=== PATIENT | male | born 1945 | race American Indian/Alaskan Native ===

== ENCOUNTER → 2019-12-28 11:38 | Outpatient (CLI) | payer MEDICARE, MEDICAID, SELFPAY ==
[2019-12-29 10:16] LABS: COVID19 Sendout NOT DETECTED (Not Detect)
== END ==
PROVIDERS: Visit Provider Physician Assistant
DX: Z01.812 Encounter for preprocedural laboratory examination (principal)
CPT/HCPCS: 87635

== ENCOUNTER 2019-12-31 09:01 | Inpatient (IN) | payer MEDICARE, MEDICAID, SELFPAY ==
[2019-12-31] VITALS (25 sets, daily range): BP systolic 96–159; BP diastolic 66–107; PULSE 82–122; RESP 9–27; TEMP 36.1–37.3; O2SAT 79–96; BMI 27.1
--- NOTE | 2019-12-31 | PATH_ITS ---
[facility] Accession Number: [id number] . 01 Material submitted: . PART A: bladder - LEFT LATERAL BLADDER WALL PART B: prostate - PROSTATE CHIPS . 02 Diagnosis: A. Left Lateral Bladder Wall, TURBT: Polypoid cystitis with cystitis cystica; please see comment. No evidence of neoplasm. . B. Prostate, TURP: Benign prostatic parenchyma with features of benign prostatic hyperplasia. Negative for malignancy. MRV 01/03/2020 1408 Local . 02 Comment: A. The histologic findings in the left lateral bladder wall are reactive in nature, and are seen commonly in patients with indwelling catheters. . As part of routine senior quality assurance specialist, Dr. Holguin has reviewed part A of this case and agrees with the diagnosis of polypoid cystitis. . 02 Electronically signed: . Lenny Yeung MD, PhD, Pathologist NPI- [id number] . 01 Gross description: . Specimen A is received in formalin, labeled with patient identification and left lateral bladder wall. It consists of two brown-oneal, irregular shaped, soft tissue pieces, measuring 0.3 x 0.3 x 0.2 cm each. The entire specimen is submitted in one cassette. . Summary of Sections: A1 - Two pieces. . Specimen B is received in formalin, labeled with patient identification and prostate chips. It consists of multiple pink-oneal prostatic chips, admixed with blood clot and black calculi, measuring 11.5 x 6.7 x 3.6 cm in aggregate and weighing 40.0 gram collectively. Eighty percent of the specimen is submitted in eight cassettes. . Summary of Sections: B1-B8 - Multiple pieces in each. ([id number]) /[facility] 01/01/2020 1630 Local . 02 Pathologist provided ICD-10: N40.1, N30.90 . 02 CPT . 555200, [id number] Performed at: 01 [facility] [address] [address], [place], [place] [id number] MD Enzo Painting MD Phone: [phone] Performed at: [facility] [id number] [place], [place] [id number] MD Kristel Hernandez MD Phone: [phone]
[2019-12-31] MEDS: LACTATED RINGERS 1,000 ML 42 ML IV ×2 (13:42→18:16)
--- NOTE | 2019-12-31 14:10 | PM.PREOP ---
Pre-operative Note Interval Note History & Physical reviewed/Exam performed by Physician: Yes Changes to H&P: No H&P completed within 30 days and has changed as indicated here:: There are no changes to the history and physical examinations scanned on file.
[2019-12-31 14:39] LABS: Hematocrit 44.7 % (41-53); Hemoglobin 15.2 g/dL (13.5-17.5); Mean Corpuscular HGB Conc 33.9 % (30-36); Mean Corpuscular Volume 91.5 fL (80-100); Platelet Count 244 X10^3/uL (150-400); Red Blood Cell Count 4.89 X10^6/uL (4.5-5.9); Red Cell Distribution Width 15.2 % (11.6-14.8); White Blood Cell Count 9.8 X10^3/uL (4.5-11.0)
[2019-12-31 14:56] LABS: Alanine Aminotransferase 23 IU/L (<50); Albumin 4.4 g/dL (3.5-5.0); Albumin Globulin Ratio 1.3 (1.0-2.8); Alkaline Phosphatase 163 U/L (38-126); Aspartate Aminotransferase 34 IU/L (17-59); BUN Creatinine Ratio 18.1 (6-22); Bilirubin Total 0.6 mg/dL (0.2-1.3); Blood Urea Nitrogen 19 mg/dL (9-20); Calcium 9.7 mg/dL (8.4-10.2); Carbon Dioxide 28 mmol/L (22-32); Chloride 105 mmol/L (98-107); Estimated Glomerular Filt Rate > 60.0 mL/min (>60); Globulin 3.4 g/dL (1.7-4.1); Glucose 96 mg/dL (80-110); HEMOLYSIS < 15 (0-50); Potassium 3.6 mmol/L (3.4-5.1); Sodium 141 mmol/L (137-145); Total Protein 7.8 g/dL (6.3-8.2)
[2019-12-31] MEDS: VANCOMYCIN 1,000 MG/200 ML PIGGYBACK 200 MG IV (15:25)
[2019-12-31] MEDS: GENTAMICIN 240 MG in SODIUM CHLORIDE 0.9% 100 ML 106 ML IV (15:53)
--- NOTE | 2019-12-31 16:29 | SUR.OPER ---
Lithotomy on padded OR bed, head on pillow, arms secured on padded arm boards at <90 degrees abduction. Legs secured in padded yellow fins stirrups.
[2019-12-31] MEDS: SODIUM CHLORIDE IRRIG SOLUTION 3,000 ML 18000 ML IRR ×2 (17:02→17:15)
[2019-12-31] MEDS: BELLADONNA/OPIUM SUPPOSITORIES 1 EACH PR (18:18)
--- NOTE | 2019-12-31 18:32 | PM.OP.1 ---
Operative Date/Time/Diagnoses Date of procedure: 12/31/19 Time of procedure: 18:32 Pre-op diagnosis: 1. urinary retention. 2. failure of medical therapy. 3. bladder neoplasm. 4. History of UTI. Post-op diagnosis: other (multiple prostatic calculi)
--- NOTE | 2019-12-31 18:37 | P.OP_ITS ---
Operative Date/Time/Diagnoses Date of procedure: 12/31/19 Time of procedure: 18:37 Pre-op diagnosis: 1. Urinary retention. 2. Failure of medical therapy. 3. Bladder neoplasm. 4. History of UTI. Post-op diagnosis: other (Numerous prostatic calculi.) Procedure & Clinicians Procedure: 1. Transurethral resection of prostate. 2. Transurethral resection of bladder tumor-left lateral wall. (0.5-2 cm). 3. Removal prostatic calculi. Same procedure as scheduled: No (Removal innumerable prostatic calculi.) Indications: 1. Urinary retention. 2. Bladder neoplasm. 3. History of UTI. Surgeon: Jaymie Andres Click Yes if Unassisted: Yes Anesthesia Type: General Operative Notes Findings: Urethra-normal. External sphincter-mild gaping. Prostate 4.5+ cm length with elevated median bar and very large median lobe. Innumerable prostatic calculi particularly apically and posteriorly. Bladder-2+ trabeculated. Normal orifices bilaterally. There is a moderate sized area of catheter tip cystitis on the posterior superior wall opposite the bladder neck. Additionally there is a more typical papillary lesion with some associated inflammatory changes at the left superior lateral wall, suspicious for neoplasm. Closure Type: not applicable Specimen(s): other (1. Prostate chips. 2. Prostatic calculi. 3. Bladder neoplasm. ) Applied: catheter (Twenty-four Slovenian, 30 cc balloon, hematuria catheter) Estimated Blood Loss (mL): 100 Blood products transfused: none Tourniquet time (min): 0 Procedure in detail: The patient was positioned supine and administered general anesthesia. He was then repositioned in semi-lithotomy and the lower abdomen genitalia and groin were then prepped and draped in sterile fashion. A 24 Slovenian resectoscope was then passed and lower urinary tract with the findings as described above. It was then fitted with the large cold biopsy forceps and large samples were taken from the index bladder lesion at the left superior lateral wall. The resectoscope was then fit with the resecting loop and the biopsy/TUR site at the left lateral wall was cauterized for hemostasis. Next resection of the prostate was undertaken, by 1st making a deep incisions at the 11 and 1:00 a.m. positions from the bladder neck to the verumontanum to the level of the capsule. The intervening anterior tissue was then resected in a similar manner. Now the left, followed by the right lateral lobes were taken down from anterior to posterior. The very large median lobe was then addressed and resected from the bladder neck to verumontanum. At no point was resection taken deeper than the surgical capsule. Innumerable variable sized prostatic calculi were encountered, particularly in the apically and posterior regions bilaterally. All chips and most of the calculi were irrigated free of the prostatic fossa and bladder proper. Hemostasis was then obtained with the cautery loop and the button. The bladder was then left partially filled and the resectoscope was removed. A [address] Muñoz catheter with 30 cc balloon was then passed the lower urinary tract. The balloon was inflated to 45 cc in the lower urinary tract was then hand irrigated with sterile saline until a centrally clear to light pink. Continuous saline irrigation was then set up. A drainage bag was connected and the catheter range min secured to the right thigh. Patient was then repositioned in supine, awakened, and transferred to [facility] in stable condition. Complications: none Post-operative Condition: stable Disposition: PACU Plan for aftercare: Admit to acute care
[2019-12-31] MEDS: fentaNYL 100 MCG/2 ML INJ IV ×3 (19:23→19:33)
--- NOTE | 2019-12-31 20:39 | SUR.PHASEI ---
Bedside report given to DANY Martinez in PACU. Transferred care of pt to DANY Martinez in PACU at this time. Pt in stable condition, vss.
--- NOTE | 2019-12-31 22:10 | SUR.PHASEI ---
PT transferred to ac floor by verifying machine operatorDANY Martinez.
--- NOTE | 2019-12-31 22:24 | RT ---
1900 Neb tx given to pt in pacu. pt disoriented and thrashing about. bbs rhonchi with copious secretions suctioned per oral cresencio. after pt calmed spo2 noted to be 92% on 10lpm aerosol mask.
[2019-12-31] MEDS: LACTATED RINGERS 1,000 ML 125 ML IV (23:10)
[2020-01-01] VITALS (11 sets, daily range): BP systolic 113–145; BP diastolic 54–87; PULSE 70–91; RESP 16–20; TEMP 37–38.1; O2SAT 88–99
--- NOTE | 2020-01-01 06:38 | PC.NURSE ---
For most of shift pt was very fatigued and a bit confused. He couldn't tell me the date, where he was etc. This morning at 0600 he is answering questions appropriately and AxOx3. On 4.5L NC overnight satting well at 97%. Bumped down to 3L NC this morning. Muñoz has been continuously irrigated. Urine looks peach/light pink. True urine=2,400mL
--- NOTE | 2020-01-01 07:41 | PM.PN.1 ---
Subjective Subjective Date Patient Seen: 01/01/20 Time Patient Seen: 07:41 Interval history: All in all, he reports an overall restful night. He did experience much respiratory distress and requirement to suction pulmonary secretions in PACU following general anesthetic. He denies current congestion. Nursing staff provided no history of catheter clotting or dysfunction. No hand irrigation required. He denies pain. He is hungry and wants to have breakfast. Exam Vital Signs (past 8 hours): - 01/01/20 01:00 01/01/20 05:25 Temperature 99.1 F Pulse Rate 90 84 Respiratory Rate 20 18 Blood Pressure 119/69 113/68 Pulse Oximetry 96 98 Oxygen Delivery Method Nasal Cannula Oxygen Flow Rate 4.5 Narrative Exam Narrative: He sitting upright in bed and comfortable no acute distress. Chest equal and unlabored bilaterally there are coarse upper airway sounds without rhonchi or wheeze. Heart rate is regular. Abdomen is scaphoid and soft. Bowel sounds are normal and active. Genitalia-3 way Muñoz indwelling functioning well with clear output and minimal drip rate. Extremities-trace by pedal edema no cyanosis or clubbing. Objective Labs Result Diagrams: 12/31/19 13:30 12/31/19 13:30 Labs: Laboratory Results - last 24 hr 12/31/19 12/31/19 13:30 13:30 WBC 9.8 RBC 4.89 Hgb 15.2 Hct 44.7 MCV 91.5 MCH 31.0 MCHC 33.9 RDW 15.2 H Plt Count 244 Sodium 141 Potassium 3.6 Chloride 105 Carbon Dioxide 28 BUN 19 Creatinine 1.05 Estimated GFR > 60.0 BUN/Creatinine Ratio 18.1 Glucose 96 Calcium 9.7 Total Bilirubin 0.6 AST 34 ALT 23 Alkaline Phosphatase 163 H Total Protein 7.8 Albumin 4.4 Globulin 3.4 Albumin/Globulin Ratio 1.3 Assessment & Plan Assessment & Plan narrative: Assessment: 1. Stable status post TURP/TURBT on 12/31/2019. 2. COPD. Former smoker. 3. Pathology pending. Plan: 1. Advance diet and activity. 2. Plugged catheter inflow if output remains clear once the CBI held and patient ambulates. 3. Follow-up pathology when available. 4. Plan to restart Plavix in 3-5 days depending on character and color of urine output.
[2020-01-01] MEDS: METOPROLOL ER 50 MG TABLET PO (09:13)
[2020-01-01] MEDS: GABAPENTIN 100 MG CAPSULE PO (09:13)
[2020-01-01] MEDS: ROSUVASTATIN 10 MG TABLET 40 MG PO (09:14)
[2020-01-01] MEDS: ONDANSETRON 4 MG/2 ML INJ IV (12:38)
--- NOTE | 2020-01-01 13:19 | PC.NURSE ---
Clots and pink urine at beginning of shift; Irrigation clamped @ 1030; urine yellow with very small clots; LS clear, non-productive, wet cough intermittent; IS 2000; @1200 Irrigation disconnected and plugged; @ 1315 pt c/o mild nausea, no emesis; IV Zofran administered; Pt reports that he is missing partial dentures; personal possessions include clothes, cell phone, sun glasses and reading glasses; Partial dentures not located; this RN informed Charge Nurse.
--- NOTE | 2020-01-01 14:49 | CM.DANOTE ---
Addendum entered by Giana Bañuelos LPN 01/01/20 15:28: Admission status: confirmed INPT: per UR DANY Giraldo. Addendum entered by Giana Bañuelos LPN 01/01/20 15:12: Met now with pt and introduced self and role. Pt is found lying in bed, coughing. He admits to being nauseated but is able to provide information. Pt confirms he lives alone in [facility]. He arrived at [facility] for his surgery via [facility]. Says his friend Ashish Meng: [phone] (of note he says the phone number on face sheet for Ashish is not correct and verifies the correct number by checking his cell phone). He does not have anyone who will be checking in on him once he does return home. PCP: he confirms this if Dr. Augustin Santana catheter is in place with with irrigation schedule. Dr. Storm did see pt early this morning and his progress note is reviewed. There is no indication as to when pt might be deemed stable for d/c and RN caring for pt is currently not available. DCP team will be following. P: at this point, appears likely pt will d/c to home in company of Ashish with urology followup. Unclear if pt will d/c with the santana catheter. Original Note: Discharge Planning/Care Management DCP: assessment: case received and discussed in Team Rounds. Pt was admitted yesterday for a scheduled urology procedure: TURP/TRBT Payer: Medicare and Medicaid Surgeon Dr. Baptiste. No PCP is listed. Pre-op assessment note: CAB: 12/25 shows very little information given before the surgery and pt was not reachable by phone. Plan to see pt now to followup. CM Discharge Assessment Start: 01/01/20 14:46 Freq: Status: Active Protocol: Document 01/01/20 14:48 ITV (Rec: 01/01/20 14:49 ITV [id number]) Discharge Planning Assessment Advance Directives? Yes History Provided By Medical Record Has Patient been admitted in last 30 No days? Prior Living Arrangements House Review Status In Process Pre-Anesthesia Assessment Start: 12/26/19 08:13 Freq: Status: Complete Protocol: Document 12/28/19 08:07 CAB (Rec: 12/28/19 08:22 CAB [id number]) Pre-Anesthesia Assessment PAC Comment Surgeon H&P only source of medical/medication history. Requested additional records from Surgeon, not received. Unable to reach pt by phone for PAC assess, limited chart review. Medication list shows warfarin, unknown dx or if pt has been instructed to hold. Patient Information Reviewed Via Chart Review H&P Completed Within 30 Days Yes Primary Language Canadian Physician Surgeon Required No Hx Anesthesia Reactions No: No previous surgical history identified Smoking Status Former smoker Tobacco type cigarettes Smoking packs per day 3 how long ago did patient quit smoking Quit approx 1.5 years ago Currently Taking a Beta Mango Yes: Metoprolol Anti-Coagulant Therapy Yes: Warfarin-unknown directions on holding Comment Surgeon H&P doesn't give hx of reason for warfarin Bladder Pattern Retention Urinary Catheter Present Yes Have you had any close contact with Unknown someone diagnosed with COVID-19? Marital Status Unknown Patient Discharge Plan Description Return Home
--- NOTE | 2020-01-01 17:22 | DI.RAD.S_ITS ---
PROCEDURE: XR CHEST 2V INDICATIONS: pneumonia TECHNIQUE: 2 views of the chest were acquired. COMPARISON: [facility], CR, XR CHEST 1 VIEW, 06/25/2018, 6:16. FINDINGS: Surgical changes and devices: None. Lungs and pleura: Lungs are abnormal, with a interstitial prominence not previously present in June of 2018, and on the lateral view there is a focal consolidation at the posterior right lung base, faintly seen at the inferior margin of the right hemithorax on the frontal view. Lung volumes are enlarged, COPD is presumed. No pleural effusions or pneumothorax. Mediastinum: Mediastinal contours are normal. Heart size is normal. Bones and chest wall: No suspicious bony abnormalities. Soft tissues appear unremarkable. IMPRESSION: Bilateral interstitial prominence increased from prior study, right lower lobe pneumonia, severe COPD. Dictated by: Weston Johnson M.D. on 01/03/2020 at 9:25 Approved by: Weston Johnson M.D. on 01/03/2020 at 9:31
[2020-01-01 18:17] LABS: Add Manual Diff / Slide Review NO; Basophils Absolute Auto 0 /uL (0-100); Basophils Percent Auto 0.2 % (0-2); Eosinophils Absolute Auto 100 /uL (0-450); Hematocrit 29.6 % (41-53); Lymphocytes Absolute Auto 1300 /uL (1100-4500); Lymphocytes Percent Auto 10.5 % (25-40); Mean Corpuscular HGB Conc 33.7 % (30-36); Mean Corpuscular Hemoglobin 31.1 PG (26-34); Mean Corpuscular Volume 92.2 fL (80-100); Monocytes Absolute Auto 800 /uL (0-900); Monocytes Percent Auto 6.3 % (3-14); Neutrophils Absolute Auto 10200 /uL (1500-7000); Platelet Count 186 X10^3/uL (150-400); Red Blood Cell Count 3.21 X10^6/uL (4.5-5.9); Red Cell Distribution Width 15.2 % (11.6-14.8); White Blood Cell Count 12.5 X10^3/uL (4.5-11.0)
[2020-01-01 18:26] LABS: Appearance Urine UA SL CLOUDY; Bilirubin Urine UA NEGATIVE (NEGATIVE); Color Urine UA YELLOW; Glucose Urine UA NEGATIVE (Negative); Ketones Urine UA NEGATIVE (NEGATIVE); Leukocyte Esterase Urine UA 1+ (NEGATIVE); Nitrite Urine UA NEGATIVE (Negative); Occult Blood Urine UA 3+ (Negative); Protein Urine UA 2+ (Negative); Urobilinogen Urine UA 0.2 E.U./dL (0.2); pH Urine UA 5.5 (4.5-8.0)
[2020-01-01 18:37] LABS: Amorphous Sediment Urine 1+; Bacteria Urine Few (2-10); Culture Indicated Urine Specimen Cultured; RBC Urine >100/HPF (0-5/HPF); WBC Urine 5-10/HPF (0-5/HPF)
[2020-01-01 19:52] LABS: COVID19 -Nasal RAPID Negative (Negative)
[2020-01-01] MEDS: CIPROFLOXACIN 250 MG TABLET PO (20:57)
[2020-01-01] MEDS: ACETAMINOPHEN 325 MG TABLET 650 MG PO (22:00)
[2020-01-02] VITALS (8 sets, daily range): BP systolic 131–163; BP diastolic 82–100; PULSE 62–83; RESP 15–20; TEMP 36.2–37.9; O2SAT 92–95
--- NOTE | 2020-01-02 05:15 | PC.NURSE ---
Discontinued [address] way santana catheter @ 0500, tolerated procedure well. Emptied 1800 cc of pink tinged urine no clots noted. But noted very small amount of blood in the tip of the catheter. Instructed to call staff if he needs to urinate & get up OOB to the BR or BSC. Call light with in reach, will cont. POC & monitor.
[2020-01-02] MEDS: CIPROFLOXACIN 250 MG TABLET PO ×2 (08:51→21:11)
[2020-01-02] MEDS: GABAPENTIN 100 MG CAPSULE PO (08:51)
[2020-01-02] MEDS: ROSUVASTATIN 10 MG TABLET 40 MG PO (08:51)
[2020-01-02] MEDS: ACETAMINOPHEN 325 MG TABLET 650 MG PO ×2 (08:51→19:17)
[2020-01-02] MEDS: METOPROLOL ER 50 MG TABLET PO (08:51)
--- NOTE | 2020-01-02 09:28 | PC.NURSE ---
Addendum entered by Laura Pedraza R.N. 01/02/20 13:16: Dr. Andres in and did rounds on patient, he will be going home tomorrow. Doctor states that patient does have the start of UTI, and most likely got this from having a santana catheter in for 6 months prior to surgery. He is getting oral antibiotics now. VSS, resting comfortably. Addendum entered by Laura Pedraza R.N. 01/02/20 11:11: Paragraph charged below on the wrong patient, about santana being taken out.,.. Please ignore. Addendum entered by Laura Pedraza R.N. 01/02/20 11:09: Patients santana catheter taken out at 1045. He had 750cc out of clear, yellow urine. Urinal placed at bedside and pt is now getting up with physical therapy. Original Note: Patient voided 425 ml of urine in his urinal, and missed the commode and voided about another 25cc estimate on the ground. Bladder Scanned for 275cc of urine for PVR. Phoned Mckenna as his orders are to call him if he has more than 200cc in bladder. His orders were to do a in/out cath with a coude and then start over with a 4hour window. The in/out cath was done at 0800 and he had 200cc out of bladder. He does have the urinal placed now as he states that he feels like he constantly has to void. The color of his urine is clear and pink with one small clot passed. Patient given some tylenol for pain of 3/10. He states that the tip of his penis is sensitive since santana has been taken out. Trying to nap now as he states that he feels tired. Patient has an intermitant cough, he is a equipment operator intermodal yard smoker. LS with inspiratory wheezes in r.lower and r.upper lobes. Patient is not on O2 at this time, he has been sating between 92-95%. Will check to see how much he has voided by 11 and if needed with in/out cath patient as needed. should be coming to round on patient shortly.
--- NOTE | 2020-01-02 11:37 | P.PN_ITS ---
Subjective Subjective Date Patient Seen: 01/02/20 Time Patient Seen: 11:37 Interval history: He reports an overall uneventful night. He has had return of bowel function. He denies pain. He has tolerated general diet. Muñoz catheter was removed at approximately 5:00 a.m. today. First postvoid residual volume was about 270 cc. He was straight cathed for that residual. Since then he has voided freely. A follow-up postvoid residual volume was just 60 cc. Exam Vital Signs (past 8 hours): - 01/02/20 05:00 01/02/20 08:00 Temperature 97.2 F L 97.8 F Pulse Rate 81 83 Respiratory Rate 16 15 Blood Pressure 163/85 H 149/94 H Pulse Oximetry 95 92 Oxygen Delivery Method Room Air Oxygen Flow Rate 0 Narrative Exam Narrative: He is sitting upright in bed without distress. Chest equal clear and unlabored bilaterally. Heart-regular rate and rhythm. Abdomen is protuberant soft bowel sounds are active. No tenderness. Objective Labs Result Diagrams: 01/01/20 18:05 12/31/19 13:30 Labs: Laboratory Results - last 24 hr 01/01/20 01/01/20 01/01/20 18:00 18:00 18:05 WBC 12.5 H RBC 3.21 L Hgb 10.0 L Hct 29.6 L MCV 92.2 MCH 31.1 MCHC 33.7 RDW 15.2 H Plt Count 186 Neut % (Auto) 82.0 H Lymph % (Auto) 10.5 L [place] % (Auto) 6.3 Eos % (Auto) 1.0 L Baso % (Auto) 0.2 Neut # (Auto) 25778 H Lymph # (Auto) 1300 [place] # (Auto) 800 Eos # (Auto) 100 Baso # (Auto) 0 Urine Color Yellow Urine Appearance Sl cloudy Urine pH 5.5 Ur Specific [place] 1.020 Urine Protein 2+ H Urine Glucose (UA) Negative Urine Ketones Negative Urine Occult Blood 3+ H Urine Nitrate Negative Urine Bilirubin Negative Urine Urobilinogen 0.2 Ur Leukocyte Esterase 1+ H Urine RBC >100/hpf H Urine WBC 5-10/hpf H Amorphous Sediment 1+ Urine Bacteria Few (2-10) H Ur Culture Indicated? Specimen cultured COVID-19 PCR Negative Assessment & Plan Assessment & Plan narrative: Assessment: 1. Stable postoperative day 2. Status post TURBT/TURBT. 2. Pathology pending. 3. Low-grade fever on the evening of 01/01/2020, and mild leukocytosis. Likely UTI. Preliminary culture shows no growth. Chest x-ray report not available, but my personal review shows no obvious evidence of infiltrate. Plan: 1. Continue ciprofloxacin observe clinical course improvement. 2. Follow-up on blood and urine culture when available. 3. Follow-up on pathology when available.
--- NOTE | 2020-01-02 15:42 | CM.DPC ---
DCP Cont: Patient could potentially discharge tomorrow. Muñoz was removed, and is voiding. Will see how he does tomorrow. P: DCP to continue to follow. Patient should be able to discharge home when medically stable. Samantha Temple RN/Machine Etcher
[2020-01-02] MEDS: ONDANSETRON 4 MG/2 ML INJ IV (17:47)
[2020-01-03 01:22] VITALS: TEMP 38
[2020-01-03 01:25] VITALS: TEMP 38
[2020-01-03] MEDS: ACETAMINOPHEN 325 MG TABLET 650 MG PO (01:25)
[2020-01-03 02:09] VITALS: TEMP 37.1
[2020-01-03 02:16] VITALS: TEMP 37.1
[2020-01-03 05:00] VITALS: BP 159/97; PULSE 63; RESP 16; TEMP 37.3; O2SAT 94
--- NOTE | 2020-01-03 07:01 | PC.NURSE ---
Bladder scanned @ 0555, noted 196 cc per bladder scanner. Pt. slept most of the shift, no C/O pain or bladder discomfort. Will report to day RN.
[2020-01-03 07:33] VITALS: BP 166/90; PULSE 84; RESP 16; TEMP 37.4; O2SAT 93
--- NOTE | 2020-01-03 08:41 | P.DS_ITS ---
History of Present Illness History of Present Illness Date Patient Seen: 01/03/20 Time Patient Seen: 08:41 Chief complaint: [id number] Narrative: This 74-year-old gentleman was admitted on the morning of 12/31/2019 and underwent uncomplicated transurethral resection of bladder tumor and transurethral resection of prostate for urinary retention under general anest hesia. Postoperative course was remarkable for severe congestion an requirement to suction secretions in the postoperative recovery. With pulmonary toilet his respiratory status promptly improved. He tolerated a general diet well the next day. On the evening of the 1st postoperative night he developed low-grade fever, malaise, and reported loss of taste in appetite. White blood cell count was 12.5 with left shift. Urine and blood cultures were negative. Chest x-ray demonstrated no infiltrate. He was started on ciprofloxacin 250 mg b.i.d. and by the morning of the 2nd postoperative day he was feeling much improved. A Muñoz catheter was removed any subsequently had a successful voiding trial. On the morning of 01/03/2020 he is stable for discharge. Pathology remains pending. Discharge Providers Provider Date of admission: 12/31/19 09:01 Discharge Date: 01/03/20 Consults: 12/31/19 22:46 Consult to Discharge Planning Routine Comment: Discharge provider: Jaymie Andres MD Summary Hospital Course Discharge Diagnosis: 1. Bladder neoplasm. 2. History of urinary retention now status post TURP. Hospital Course: See above HPI Status at Discharge Cognitive/behavioral status at discharge: oriented Functional status at discharge: independent ambulation Overall status at discharge: patient is back to baseline Time Spent with Patient Time spent: Greater than 30 minutes Exam Vital Signs (past 8 hours): - 01/03/20 01:22 01/03/20 01:25 01/03/20 02:09 Temperature 100.4 F H 100.4 F H 98.8 F Pulse Rate Respiratory Rate Blood Pressure Pulse Oximetry 01/03/20 02:16 01/03/20 05:00 01/03/20 07:33 Temperature 98.8 F 99.2 F 99.4 F Pulse Rate 63 84 Respiratory Rate 16 16 Blood Pressure 159/97 H 166/90 H Pulse Oximetry 94 93 Oxygen Delivery Method Room Air Oxygen Flow Rate 0 Objective Labs Result Diagrams: 01/01/20 18:05 12/31/19 13:30 Discharge Plan Discharge Plan Patient Disposition: Home Discharge comment: Restart Plavix Monday January 06, 2020. Call office to schedule follow-up appointment in about 4 weeks. Discharge orders & Medications Prescriptions: New ciprofloxacin HCl 250 mg tablet 250 mg PO Q12H Qty: 14 RF: 0 Continued metoprolol succinate 50 mg Tablet Extended Release 24 Hr 50 mg PO DAILY RF: 0 gabapentin 100 mg Capsule 100 mg PO DAILY RF: 0 clopidogrel [Plavix] 75 mg Tablet 75 mg PO DAILY RF: 0 rosuvastatin 40 mg Tablet 40 mg PO DAILY RF: 0 Follow up/Referrals: Jaymie Andres MD [Physician] - Diet/Activity/Treatments Diet: Diet as Tolerated Activity: No lifting heavier than 15 lb or strenuous activity for 4 weeks Skin/Wound/Dressing Care Report to your healthcare provider any signs of infection, such as:: chills, fever, night sweats and increased pain Visit Report/Discharge Packet Instructions: DI for Transurethral Resection of the Prostate, DI for Urinary Tract Infection (UTI), How to Prevent Falls Visit Report Forms: Patient Portal/API, Stroke Signs & Symptoms
[2020-01-03] MEDS: ROSUVASTATIN 10 MG TABLET 40 MG PO (09:21)
[2020-01-03] MEDS: GABAPENTIN 100 MG CAPSULE PO (09:22)
[2020-01-03] MEDS: METOPROLOL ER 50 MG TABLET PO (09:22)
[2020-01-03] MEDS: CIPROFLOXACIN 250 MG TABLET PO (09:22)
[2020-01-03] MEDS: SODIUM CHLORIDE 0.9% FLUSH 10 ML IV (09:22)
--- NOTE | 2020-01-03 13:39 | PC.NURSE ---
Addendum entered by Edel Hernández R.N. 01/03/20 14:53: Discharged home via auto w/friend. Original Note: Pending discharge: Feels ready to d/c home. Has been able to void w/out diff. No pain. Up in chair and moving in room w/out diff. Tolerates diet w/out problems. Had a sl temp during the night and md is aware, although he has been afebrile this shift. MD has given pt discharge instructions. Reviewed d/c packet and questions answered. Pt is to continue his oral antibiotic tonight. Hold the plavix until 01/05. Pt understands his instructions. He is awaiting his ride at this time.
== END 2020-01-03 14:00 | disposition home or self-care (01) | DRG 665 ==
PROVIDERS: Anesthesiology; Admitting Provider Specialist; Referring Provider Specialist; Visit Provider Specialist
PROC: 0VT08ZZ Resection of Prostate, Via Natural or Artificial Opening Endoscopic (ICD-10-PCS; CPT 52601; principal; 2019-12-31 15:00)
PROC: 0TBB8ZZ Excision of Bladder, Via Natural or Artificial Opening Endoscopic (ICD-10-PCS; 2019-12-31 15:00)
DX: D41.4 Neoplasm of uncertain behavior of bladder (principal); J18.9 Pneumonia, unspecified organism; N40.1 Benign prostatic hyperplasia with lower urinary tract symptoms; R33.9 Retention of urine, unspecified; N42.0 Calculus of prostate; R09.02 Hypoxemia; J44.9 Chronic obstructive pulmonary disease, unspecified; Z01.812 Encounter for preprocedural laboratory examination; Z11.59 Encounter for screening for other viral diseases; Z87.891 Personal history of nicotine dependence; Z86.73 Personal history of transient ischemic attack (TIA), and cerebral infarction without residual deficits
CPT/HCPCS: 36415; 52234; 52601; 71046; 80053; 81001; 85025; 85027; 87040; 87086; 87635; 93005; 94762; J2405; J2704; J3010